=== PATIENT | male | born 1965 | race African-American/Black ===

== ENCOUNTER 2024-03-07 14:38 | Inpatient (IN) ==
--- NOTE | 2024-03-07 15:04 | Emergency Department Note ---
Impression & Plan Pleural effusion ADMIT ED Provider Note HPI: History obtained from patient. 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 Per report patient had an x-ray done at [facility] that showed a large right pleural effusion and patient was therefore sent to the ED to be assessed. On arrival here to the ED the patient is hemodynamically stable, he is noted be saturating at 91% on room air and therefore was placed on nasal cannula oxygen with good improvement to 95%. Patient is otherwise in no acute distress. Patient is conversational on arrival. ROS: - Per HPI Differential Diagnosis: Malignant pleural effusion, pulmonary embolism, pneumonia, viral upper respiratory infection, acute CHF exacerbation, COPD exacerbation,, amongst other potential pathologies. *Outpatient medications and allergy history reviewed. PE: General: Alert HEENT: Normocephalic, trachea midline Eyes: Extraocular eye movement is intact, no scleral erythema Pulmonary: Diminished breath sounds on the right, no evidence of wheezing or crackles bilaterally Cardio: Regular rate and rhythm GI: Abdomen is soft to palpation : No suprapubic tenderness MSK: No evidence of trauma or malformation of the extremities, no edema Skin: No evidence of rash Neuro: Alert, no focal deficits Psychiatric: Cooperative INDEPENDENT INTERPRETATIONS: engine specialist: (As interpreted by myself): - An order was placed for continuous cardiac monitoring - Patient was noted to be in sinus rhythm with a rate of 95 EKG: (As interpreted by myself): Rate: 100 Rhythm: Normal sinus rhythm Intervals: Within normal limits ST changes: No ST elevation Time: 1513 Chest x-ray: (As interpreted by myself): Large right-sided pleural effusion Medical Decision Making: IV was established and lab work obtained, patient was placed on welding setter. Lab work shows a leukopenia at 2.79, hemoglobin is stable at 12.1, platelet count is 463, CMP shows no critical electrolyte abnormalities, troponin is negative, no evidence of acute kidney injury, procalcitonin is low, lipase is low. Chest x-ray shows opacification of the almost entire right lung consistent likely with pleural effusion that is malignant in origin. On my reassessment the patient is resting comfortably on nasal cannula oxygen. I discussed the patient's presentation with the on-call hospitalist, Dr. Hernández, and the patient was placed for admission in stable condition for further management. He will likely require placement of a Pleurx catheter for continuous drainage of his effusion that is now recurrent as he did have a thoracentesis several weeks ago. Patient was placed for admission in stable condition. Consultants/Discussions held with other healthcare providers: -Hospitalist, Dr. Hernández Disposition discussion held by myself with: -Patient and present staff at the bedside Diagnosis: 1. Malignant pleural effusion, acute on chronic 2. Dyspnea, acute 3. Leukopenia, acute 4. Neutropenia, acute 5. History of metastatic carcinoma of the salivary gland Disposition: Admission Ramu Trimble DO Emergency Medicine Past Med/Surg History Problem List (Updated 03/07/24 @ 18:14 by Yemi Wells MD, [facility]) Mediastinal shift Acute respiratory failure with hypoxia Neutropenia Pleural effusion (Acute) Adenoid cystic carcinoma of salivary gland (Chronic 01/08/20) Medical History (Updated 03/07/24 @ 18:14 by Yemi Wells MD, [facility]) Port-A-Cath in place Low back pain Other intervertebral disc degeneration, lumbar region Psoriasis Hypertension, benign Dermatitis Gastroesophageal reflux Generalized idiopathic epilepsy and epileptic syndromes, not intractable, without status epilepticus Adjustment disorder with mixed anxiety and depressed mood Hyperlipidemia Diabetes mellitus type 2, uncomplicated Surgical History (Updated 02/29/24 @ 09:40 by Carmel Tesfaye RN) History of open reduction and internal fixation (ORIF) procedure Left distal femur fracture H/O neck dissection 02/21/20; 07/23/21 Family History (Updated 02/29/24 @ 09:06 by Carmel Tesfaye RN) Mother Cancer Grandmother (Maternal) Cancer Social History Smoking Status: Former smoker Preferred Language: Japanese 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 Beliefs That Will Affect Care: None Current Living Situation: Other Current Living Situation Comment: senior care Feels Safe at Home: Yes Allergies Allergies Allergy/AdvReac Type Severity Reaction Status Date / Time No Known Allergies Allergy Verified 03/07/24 16:39 Home Meds Home Medications Medication Instructions Recorded Confirmed amlodipine 10 mg tablet 10 mg PO DAILY 02/29/24 03/07/24 famotidine 20 mg tablet 20 mg PO DAILY 02/29/24 03/07/24 glipizide 5 mg tablet 5 mg PO DAILY 02/29/24 03/07/24 levetiracetam 500 mg tablet 500 mg PO BID 02/29/24 03/07/24 (Antwan) lisinopril 5 mg tablet 5 mg PO DAILY 02/29/24 03/07/24 metformin 1,000 mg tablet 1,000 mg PO DAILY 02/29/24 03/07/24 mirtazapine 15 mg tablet 15 mg PO HS 02/29/24 03/07/24 prazosin 1 mg capsule 1 mg PO HS 02/29/24 03/07/24 rosuvastatin 10 mg tablet 10 mg PO DAILY 02/29/24 03/07/24 aspirin 81 mg tablet,delayed 81 mg PO DAILY 03/07/24 03/07/24 release insulin regular human 100 unit/mL 1 sliding scale dose subcut 03/07/24 03/07/24 injection solution (Novolin R USEASDIRECTD Regular U-100 Insulin) multivitamin (One Daily 1 tab PO DAILY 03/07/24 03/07/24 Multivitamin tablet) Results & Data (ED) Vital Signs Vital Signs - 24 hr 03/07/24 14:47 03/07/24 15:15 03/07/24 15:15 Temperature 36.8 C Temperature Source Temporal Artery Scan Pulse Rate 101 H Pulse Rate [Apical] 99 H Respiratory Rate 18 29 H Respiratory Effort / Characteristics Non-Labored Spontaneous Respiratory Depth Normal Blood Pressure 140/91 Blood Pressure [Right Arm] 151/110 H Blood Pressure Mean 107 Blood Pressure Mean [Right Arm] 123 Blood Pressure Position Sitting Pulse Oximetry 93 96 91 Oxygen Delivery Method Room Air Nasal Cannula Nasal Cannula Oxygen Flow Rate 2 0 Sepsis Recent Fever Within 48 Hours No Sepsis New/Unexplained Change in Mental Status N/A Sepsis Action Taken by Nursing No Action Required Oxygen Flow Rate - Titration 2 Pulse Oximetry Post Tiitration 96 03/07/24 15:19 03/07/24 15:35 Temperature Temperature Source Pulse Rate 99 H Pulse Rate [Apical] Respiratory Rate Respiratory Effort / Characteristics Respiratory Depth Blood Pressure Blood Pressure [Right Arm] Blood Pressure Mean Blood Pressure Mean [Right Arm] Blood Pressure Position Pulse Oximetry 96 Oxygen Delivery Method Nasal Cannula Oxygen Flow Rate 2 Sepsis Recent Fever Within 48 Hours Sepsis New/Unexplained Change in Mental Status Sepsis Action Taken by Nursing Oxygen Flow Rate - Titration Pulse Oximetry Post Tiitration Laboratory Data 03/07/24 15:05 03/07/24 15:05 Lab Results 03/07/24 Range/Units 15:05 WBC 2.79 L (4.8-10.8) K/ul RBC 4.37 L (4.70-6.10) M/uL Hgb 12.1 L (14.0-18.0) g/dl Hct 37.9 L (42.0-52.0) % MCV 86.7 (80.0-100.0) fL MCH 27.7 (25.0-34.0) pg MCHC 31.9 L (32.0-36.0) g/dL RDW Std Deviation 42.5 (36.4-46.3) fL RDW Coeff of Chyna 13.5 (11.5-14.5) % Plt Count 463 H (130-400) K/uL MPV 9.9 (9.4-12.4) fL Immature Gran % (Auto) 0.0 % Neut % (Auto) 26.6 % Lymph % (Auto) 40.1 % [place] % (Auto) 31.2 % Eos % (Auto) 0.7 % Baso % (Auto) 1.4 % Neut # (Auto) 0.74 L* (1.40-6.50) K/uL Lymph # (Auto) 1.12 L (1.20-3.40) K/uL [place] # (Auto) 0.87 H (0.11-0.59) K/uL Eos # (Auto) 0.02 (0.00-0.50) K/uL Baso # (Auto) 0.04 (0.00-0.20) K/uL Immature Gran # (Auto) 0.00 L (0.01-0.20) K/uL Sodium 140 (136-145) mmol/L Potassium 4.4 (3.5-5.1) mmol/L Chloride 104 (98-107) mmol/L Carbon Dioxide 27 (21-32) mmol/L Anion Gap 9 (3-11) BUN 10 (6-23) mg/dl Creatinine 0.85 (0.6-1.4) mg/dl Est Cr Clr Drug Dosing Not Reportable Est GFR ( Amer) 110.5 ml/min Est GFR (Non-Af Amer) 95.4 ml/min BUN/Creatinine Ratio 11.8 (10-20) Glucose 136 H (70-99(Fasting)) mg/dl Calcium 9.7 (8.6-10.3) mg/dl Total Bilirubin 0.4 (0.2-1.0) mg/dl AST 21 (13-39) U/L ALT 23 (7-52) U/L Alkaline Phosphatase 102 (34-104) U/L Troponin I High Sens 10.0 (0-20) pg/ml Total Protein 8.1 (6.0-8.3) gm/dl Albumin 3.7 (3.4-5.0) gm/dl Globulin 4.4 H (2.5-4.0) gm/dl Albumin/Globulin Ratio 0.8 L (0.9-2) Lipase < 3 L (11-82) U/L Procalcitonin 0.09 (0-0.5) ng/ml Administered Medications Filgrastim (Filgrastim 480 Mcg/1.6 Ml Vial) 480 mcg SC DAILY [facility] Stop: 03/08/24 09:01 Last Admin: 03/07/24 18:15 Dose: 480 mcg Documented By: PAIGE Ceftriaxone Sodium (Rocephin) 2,000 mg in 50 mls @ 100 mls/hr IV Q24H [facility] Stop: 03/09/24 16:59 Last Infusion: 03/07/24 18:55 Dose: Infused Documented By: Admin: 03/07/24 18:17 Dose: 100 mls/hr Documented By: PAIGE Discontinued Medications Lidocaine HCl (Lidocaine 1% Local 20 Ml Vial) Confirm Administered Dose 20 ml .ROUTE .[facility] Stop: 03/07/24 17:20 Last Admin: 03/07/24 18:19 Dose: 10 ml Documented By: PAIGE Imaging Data Radiologist's Impression: Chest X-Ray 03/07/24 14:55 XR chest 1V portable HISTORY: Shortness of breath. COMPARISON: Chest 03/07/2024. FINDINGS: Continued increase in size in the large right pleural effusion with near complete opacification of the right hemithorax and mild left mediastinal shift. This has slightly progressed in the interval. No pneumothorax. A right jugular Port-A-Cath terminates in the SVC. The heart is stable in size. No evidence for pulmonary edema. There are surgical clips again noted within the left neck base. The patient's known right pleural metastatic disease is better appreciated on the prior PET/CT. Old, healed right-sided rib fractures. IMPRESSION: Continued increase in size in the large right pleural effusion with near complete opacification of the right hemithorax and mild left mediastinal shift. ACT 112: Negative or not required by law. Electronically signed by: Shawn Lara M.D. 03/07/2024 4:07 PM Discharge Plan Visit Data Chief Complaint: Respiratory Problems Stated Complaint: FLUID IN LUNGS ED Provider: Ramu Trimble Discharge Problem: Pleural effusion Patient Disposition: Admitted As Inpatient Discharge Instructions Interventions: ED Discharge Assessment Last Done: 03/07/24 19:32
[2024-03-07 15:39] LABS: Hematocrit (blood only) 37.9 % (42.0-52.0); Hemoglobin 12.1 g/dl (14.0-18.0); Mean Corpuscular Hemoglobin 27.7 pg (25.0-34.0); Mean Corpuscular Hgb Conc 31.9 g/dL (32.0-36.0); Mean Corpuscular Volume 86.7 fL (80.0-100.0); Mean Platelet Volume 9.9 fL (9.4-12.4); Platelet Count 463 K/uL (130-400); RDW Coefficient of Variation 13.5 % (11.5-14.5); RDW Standard Deviation 42.5 fL (36.4-46.3); Red Blood Count 4.37 M/uL (4.70-6.10); White Blood Count 2.79 K/ul (4.8-10.8)
[2024-03-07 15:49] LABS: Anion Gap 9 (3-11); BUN Creatinine Ratio 11.8 (10-20); Blood Urea Nitrogen 10 mg/dl (6-23); Calcium 9.7 mg/dl (8.6-10.3); Carbon Dioxide 27 mmol/L (21-32); Chloride 104 mmol/L (98-107); Est GFR (African American) 110.5 ml/min; Est GFR (Non-African American) 95.4 ml/min; Glucose 136 mg/dl (70-99(Fasting)); Potassium 4.4 mmol/L (3.5-5.1); Sodium 140 mmol/L (136-145)
[2024-03-07 16:08] LABS: Lipase < 3 U/L (11-82)
--- NOTE | 2024-03-07 16:08 | XRay Report ---
XR chest 1V portable HISTORY: Shortness of breath. COMPARISON: Chest 03/07/2024. FINDINGS: Continued increase in size in the large right pleural effusion with near complete opacifica tion of the right hemithorax and mild left mediastinal shift. This has slightly progressed in the int erval. No pneumothorax. A right jugular Port-A-Cath terminates in the SVC. The heart is stable in siz e. No evidence for pulmonary edema. There are surgical clips again noted within the left neck base. T he patient's known right pleural metastatic disease is better appreciated on the prior PET/CT. Old, h ealed right-sided rib fractures. IMPRESSION: Continued increase in size in the large right pleural effusion with near complete opacification of th e right hemithorax and mild left mediastinal shift. ACT 112: Negative or not required by law. Electronically signed by: Shawn Lara M.D. 03/07/2024 4:07 PM
[2024-03-07 16:09] LABS: Alanine Aminotransferase 23 U/L (7-52); Albumin Globulin Ratio 0.8 (0.9-2); Albumin Level 3.7 gm/dl (3.4-5.0); Alkaline Phosphatase 102 U/L (34-104); Aspartate Aminotransferase 21 U/L (13-39); Basophils # (auto) 0.04 K/uL (0.00-0.20); Basophils % (auto) 1.4 %; Bilirubin,Total 0.4 mg/dl (0.2-1.0); Eosinophils # (auto) 0.02 K/uL (0.00-0.50); Eosinophils % (auto) 0.7 %; Globulin 4.4 gm/dl (2.5-4.0); Lymphocytes # (auto) 1.12 K/uL (1.20-3.40); Lymphocytes % (auto) 40.1 %; Monocytes # (auto) 0.87 K/uL (0.11-0.59); Monocytes % (auto) 31.2 %; Neutrophils # (auto) 0.74 K/uL (1.40-6.50); Neutrophils % (auto) 26.6 %; Total Protein 8.1 gm/dl (6.0-8.3)
--- NOTE | 2024-03-07 16:12 | History & Physical Report ---
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 Noted to have rapid progression. Was seen by thoracic surgery and is not a surgical candidate for resection due to his rapid progression. Had been relatively asymptomatic at the time although had had rapid growth progression through the right thorax over the last 4 months. Preplacement was pending at that time. Follow-up to [facility] was to be based on genetic testing, cisplatin/for no real been was anticipated. S/p left gland resection 02/2020 Left neck dissection/revision 07/202109/07/2021 - 10/26/2021djuvant radiation therapy at [facility] 02/15/2024: First cycle of cisplatin/Vinrelbine - Takes baby aspirin daily, last dose yesterday - Anticipates continuing chemo with Dr. Watts over the next several weeks, was referred from [facility] day of admit due to dyspnea (2) Pleural effusion: Plan: Right pleural effusion Chest x-ray with large pleural effusion of the right lung Last thoracentesis 02/23/2024 containing atypical cells consistent with metastatic adenoid cystic carcinoma Hypoxic, tachypneic. Pulm consulted for thoracentesis/Pleurx evaluation - Discussed w/ CCP. Agree w/ pleurx eval w pulm, and empiric rocephin x1 given chills/xr findings. Added - Did not get neulasta. Recommend 480mcg filgrastim x1 today and 2nd dose tomorrow. (3) Hypertension, benign: Plan: Hypertension Continue amlodipine, lisinopril (4) Gastroesophageal reflux: Plan: Continue Pepcid (5) Generalized idiopathic epilepsy and epileptic syndromes, not intractable, without status epilepticus: Plan: History of seizures Continue Keppra - Last seizure 1999, unknown cause. None since being on keppra. (6) Hyperlipidemia: Plan: Hyperlipidemia Continue statin (7) Diabetes mellitus type 2, uncomplicated: Plan: DM2 Hold home antiglycemic's -basal bolus while inpt Goal BSG [id number] DM 2 diet (8) Neutropenia: Plan: Patient is neutropenic following chemo, and has an absolute neutrophil count less than 1 He does endorse that he has had chills and night sweats in the last few days along with his progressive dyspnea Neutropenic precautions - Procalcitonin added. Given chills, dyspnea, and opacification of the right hemithorax will cover empirically with 1-2 days of Rocephin. Discussed with hematology oncology, 2 days of Neupogen ordered (40 mcg /, 40 mcg /). Plan Nightmares Continue prazosin DVT prophylaxis: Pharmacal prophylaxis and aspirin held pending pulmonary Pleurx evaluation. 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 Patient has also been undergoing palliative radiation therapy for malignant pleural effusion with right chest wall pain. Collateral reviewed from [facility] Past medical history: Diabetes, eczema, adenoid cystic carcinoma, hypertension, stroke, seizure. Medication as of 09/2023: Amlodipine 10 mg daily, aspirin 81 mg daily, glipizide 5 mg daily, Pepcid, Voltaren, betamethasone topical, insulin NPH, Keppra 1 g twice daily, lisinopril 5 mg daily, metformin 1 g twice daily, rosuvastatin 10 mg daily, multivitamin Last chemo 2 weeks ago[address] Following with Dr. Watts Per pt: Breathing has steadily worsened over the last 2 weeks. Hard to get a deep breath. Cannot walk to med line at the half-way due to his dyspnea. No cough. R front chest and R back +gradual progression of sharp pain. Last had a thoracentesis last week, did feel better but only for a day or two. Drained 2L. No fevers or swats. +Feels cold/chills. No myalgias. Denies cough. He is not sure about the details regarding his future chemotherapy, but notes that he is trying to pursue additional treatment for his cancer No nausea/vomiting. Some loose bowels. Medical History: Reviewed Medications: Reviewed Surgical History: Reviewed Family history: Reviewed Allergies: Reviewed. NKDA. Social History: Hx tobacco abuse, 0.5-1ppd x30 years. No recent ETOH use. Code Status: Full Code Allergies Allergy/AdvReac Type Severity Reaction Status Date / Time No Known Allergies Allergy Verified 03/07/24 16:39 Home Medications Medication Instructions Recorded Confirmed Type amlodipine 10 mg tablet 10 mg PO DAILY 02/29/24 02/29/24 History aspirin 81 mg tablet 81 mg PO DAILY 02/29/24 02/29/24 History famotidine 20 mg tablet 20 mg PO DAILY 02/29/24 02/29/24 History glipizide 5 mg tablet 5 mg PO DAILY 02/29/24 02/29/24 History levetiracetam 500 mg tablet 500 mg PO .COMPLEX 02/29/24 02/29/24 History (Keppra) lisinopril 5 mg tablet 5 mg PO DAILY 02/29/24 02/29/24 History metformin 1,000 mg tablet 1,000 mg PO DAILY 02/29/24 02/29/24 History mirtazapine 15 mg tablet 15 mg PO DAILY 02/29/24 02/29/24 History prazosin 1 mg capsule 1 mg PO QPM 02/29/24 02/29/24 History rosuvastatin 10 mg tablet 10 mg PO DAILY 02/29/24 02/29/24 History aspirin 81 mg tablet,delayed 81 mg PO DAILY 03/07/24 03/07/24 History release insulin regular human 100 unit/mL 1 sliding scale dose subcut 03/07/24 03/07/24 History injection solution (Novolin R USEASDIRECTD Regular U-100 Insulin) multivitamin (One Daily 1 tab PO DAILY 03/07/24 03/07/24 History Multivitamin tablet) Past Med/Surg History Problem List (Updated 03/07/24 @ 16:28 by Servando Hernández MD) Neutropenia Pleural effusion (Acute) Adenoid cystic carcinoma of salivary gland (Chronic 01/08/20) Medical History (Updated 03/07/24 @ 16:28 by Servando Hernández MD) Port-A-Cath in place Low back pain Other intervertebral disc degeneration, lumbar region Psoriasis Hypertension, benign Dermatitis Gastroesophageal reflux Generalized idiopathic epilepsy and epileptic syndromes, not intractable, without status epilepticus Adjustment disorder with mixed anxiety and depressed mood Hyperlipidemia Diabetes mellitus type 2, uncomplicated Surgical History (Updated 02/29/24 @ 09:40 by Carmel Tesfaye RN) History of open reduction and internal fixation (ORIF) procedure Left distal femur fracture H/O neck dissection 02/21/20; 07/23/21 Family History (Updated 02/29/24 @ 09:06 by Carmel Tesfaye RN) Mother Cancer Grandmother (Maternal) Cancer Social History Smoking Status: Former smoker Preferred Language: Portuguese Warper Fixer Required: No Beliefs That Will Affect Care: None Current Living Situation: Other Current Living Situation Comment: snf Feels Safe at Home: Yes Physical Exam 2 Physical Exam: General: A&Ox3. NAD. Cooperative. HEENT: Atraumatic, normocephalic. Hearing grossly intact Pulm: R lung goodwin diminished. Symmetrical chest rise. No increased work of breathing. No respiratory distress on 2 L nasal cannula. No stridor Cardiac: Regular, tachycardic Radial pulses intact and symmetrical. Abdominal: Nontender, nondistended, soft. BS present. Ext: warm, dry, no edema. Results & Data Results & Data Vital Signs (Past 12 Hours) Vital Signs Temp Pulse Pulse Resp BP BP Pulse Ox 03/07/24 15:35 99 H 03/07/24 15:19 96 03/07/24 15:15 91 03/07/24 15:15 99 H 29 H 151/110 H 96 03/07/24 14:47 36.8 C 101 H 18 140/91 93 O2 Del Method O2 Flow Rate 03/07/24 15:35 03/07/24 15:19 Nasal Cannula 2 03/07/24 15:15 Nasal Cannula 0 03/07/24 15:15 Nasal Cannula 2 03/07/24 14:47 Room Air PG Care Time/CCT Total # of Minutes Spent Total Time Spent with Patient: Total time spent is greater than 50% in coordination of care (as documented) at patient's floor/unit and/or counseling patient: Coding Level of Care Code 60111 INT INP/OBS CARE 375MIN Diagnoses Adenoid cystic carcinoma of salivary gland C08.9 Pleural effusion J90 Hypertension, benign I10 Gastroesophageal reflux K21.9 Generalized idiopathic epilepsy and epileptic syndromes, not intractable, without status epilepticus G40.309 Hyperlipidemia E78.5 Diabetes mellitus type 2, uncomplicated E11.9 Neutropenia D70.9
[2024-03-07] MEDS ORDERED: GLUCAGON FOR INJ 1 MG VIAL SQ PRN (16:35)
[2024-03-07] MEDS ORDERED: GLUCOSE 40% GEL 15 GM TUBE PO PRN (16:35)
[2024-03-07] MEDS ORDERED: CARBOHYDRATES FOR HYPOGLYCEMIA PO PRN (16:35)
[2024-03-07] MEDS ORDERED: DEXTROSE 50% 50 ML SYRINGE IV PRN (16:35)
[2024-03-07] MEDS ORDERED: GLUCOSE 10 TAB/TUBE PO PRN (16:35)
[2024-03-07] MEDS ORDERED: Patient's HEIGHT &/or WEIGHT Needed SCH (17:00)
--- NOTE | 2024-03-07 17:05 | Pulmonary Consultation ---
Date of Consultation March 07, 2024 Assessment & Plan (1) Pleural effusion: (2) Adenoid cystic carcinoma of salivary gland: (3) Neutropenia: (4) Acute respiratory failure with hypoxia: (5) Mediastinal shift: Plan Chest x-ray 03/07/2024 personally reviewed: Large right-sided pleural effusion with mediastinal shift to the left, left costophrenic angle clear, no infiltrate on the left side -- Malignant right-sided pleural effusion Status post thoracentesis 02/23/2024, 1.4 L fluid was removed Fluid was positive for adenocystic carcinoma Given the fluid came back and short duration of time and patient is symptomatic with large mediastinal shift Pleurx catheter will be recommended. 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 He understands is agreeable to the procedure For Pleurx catheter placement today Please note the above document was generated using voice recognition software. It may contain grammatical, syntax or spelling errors.Any formal questions or concerns about the content, text or information contained within the body of this dictation should be directly addressed to the provider for clarification. 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 He was saturating 92-93% on 2 L nasal cannula at rest. He was tachycardic in the 100s. He was in respiratory distress. Denies any chest pain. Did complain of heaviness on the right side of the chest. No nausea vomiting Poor appetite. Denies any fever or chills. Does complain of coughing but not bringing up any phlegm. Denies any headache or blurry vision Social history: Greater than [id number] smoking history, used to smoke cocaine and heroin also in the past. No history of lung cancer in the family Allergies Allergy/AdvReac Type Severity Reaction Status Date / Time No Known Allergies Allergy Verified 03/07/24 16:39 Home Medications Medication Instructions Recorded Confirmed Type amlodipine 10 mg tablet 10 mg PO DAILY 02/29/24 03/07/24 History famotidine 20 mg tablet 20 mg PO DAILY 02/29/24 03/07/24 History glipizide 5 mg tablet 5 mg PO DAILY 02/29/24 03/07/24 History levetiracetam 500 mg tablet 500 mg PO BID 02/29/24 03/07/24 History (Keppra) lisinopril 5 mg tablet 5 mg PO DAILY 02/29/24 03/07/24 History metformin 1,000 mg tablet 1,000 mg PO DAILY 02/29/24 03/07/24 History mirtazapine 15 mg tablet 15 mg PO HS 02/29/24 03/07/24 History prazosin 1 mg capsule 1 mg PO HS 02/29/24 03/07/24 History rosuvastatin 10 mg tablet 10 mg PO DAILY 02/29/24 03/07/24 History aspirin 81 mg tablet,delayed 81 mg PO DAILY 03/07/24 03/07/24 History release insulin regular human 100 unit/mL 1 sliding scale dose subcut 03/07/24 03/07/24 History injection solution (Novolin R USEASDIRECTD Regular U-100 Insulin) multivitamin (One Daily 1 tab PO DAILY 03/07/24 03/07/24 History Multivitamin tablet) Patient History Medical History (Updated 03/07/24 @ 18:14 by Yemi Wells MD, [facility]) Port-A-Cath in place Low back pain Other intervertebral disc degeneration, lumbar region Psoriasis Hypertension, benign Dermatitis Gastroesophageal reflux Generalized idiopathic epilepsy and epileptic syndromes, not intractable, without status epilepticus Adjustment disorder with mixed anxiety and depressed mood Hyperlipidemia Diabetes mellitus type 2, uncomplicated Surgical History (Updated 02/29/24 @ 09:40 by Carmel Tesfaye RN) History of open reduction and internal fixation (ORIF) procedure Left distal femur fracture H/O neck dissection 02/21/20; 07/23/21 Family History (Updated 02/29/24 @ 09:06 by Carmel Tesfaye RN) Mother Cancer Grandmother (Maternal) Cancer Social History Smoking Status: Former smoker Preferred Language: Slovenian Credit Investigator Required: No Beliefs That Will Affect Care: None Current Living Situation: Other Current Living Situation Comment: [facility] Feels Safe at Home: Yes Review of Systems 2 Review of Systems: All systems reviewed & are unremarkable except as noted in HPI & below Physical Exam 2 Physical Exam: Constitutional: In respiratory distress HEENT: EOMI, PERRLA Respiratory system: Decreased air entry on the right side, No wheeze, no rhonchi, mild crackles bilateral lower lobes CVS: S1-S2 positive, no murmurs or gallops Abdomen: Soft, nontender, nondistended, positive bowel sounds x4 Extremities: +2 pulses bilaterally radialis/ dorsalis pedis, no cyanosis, no edema Neuro: Awake alert oriented x3 Psych: Normal mood and affect G/U: No johnston Skin: no rashes, warm and dry Lymphatic: no cervical or axillary lymphadenopathy Results & Data Results & Data Vital Signs (Past 12 Hours) Vital Signs Temp Pulse Pulse Resp BP BP Pulse Ox 03/07/24 15:35 99 H 03/07/24 15:19 96 03/07/24 15:15 91 03/07/24 15:15 99 H 29 H 151/110 H 96 03/07/24 14:47 36.8 C 101 H 18 140/91 93 O2 Del Method O2 Flow Rate 03/07/24 15:35 03/07/24 15:19 Nasal Cannula 2 03/07/24 15:15 Nasal Cannula 0 03/07/24 15:15 Nasal Cannula 2 03/07/24 14:47 Room Air Laboratory Results 03/07/24 15:05 03/07/24 15:05 PG Care Time/CCT Total # of Minutes Spent Total Time Spent with Patient: Total time spent is greater than 50% in coordination of care (as documented) at patient's floor/unit and/or counseling patient: Coding Level of Care Code 54731 INT INP/OBS CARE 3/75MIN Diagnoses Pleural effusion J90 Adenoid cystic carcinoma of salivary gland C08.9 Neutropenia D70.9 Acute respiratory failure with hypoxia J96.01 Mediastinal shift R93.89
--- NOTE | 2024-03-07 18:13 | Procedure Note ---
Procedure Note Date of Service March 07, 2024 Note PREOPERATIVE DIAGNOSIS: Recurrent malignant right pleural effusion. POSTOPERATIVE DIAGNOSIS: Recurrent malignant right pleural effusion. PROCEDURE PERFORMED: Right PleurX catheter placement. ANESTHESIA: Local 1% Lidocaine without Epinephrine COMPLICATIONS: None. INDICATION FOR PROCEDURE: Shortness of breath with malignant pleural effusion and mediastinal shift to the left DESCRIPTION OF PROCEDURE: The patient was placed in a semirecumbent position. I evaluated the right pleura with the ultrasound and located an adequate spot above the diaphragm. On ultrasound large right-sided pleural effusion was appreciated with pleural mets and compressive atelectasis of the right lung. The right chest and upper abdomen were prepped and draped in the usual sterile fashion. Lidocaine 1% was used to infiltrate two areas; one in the right upper quadrant where the tube would exit and the other along the anterior axillary line one intercostal space below. A small counterincision was made in the right upper quadrant area. Through the anterior axillary line area, the pleural space was accessed by Seldinger technique. The counterincision was made around the guidewire and then the PleurX catheter was tunneled from the right upper quadrant small incision to the one overlying the ribs. A sheath introducer was then passed over the wire and then the PleurX catheter was placed through the sheath introducer. There was good return of fluid. 2400 ml of sanguinous fluid was withdrawn slowly as the small counterincision was closed with Monocryl stitch. The catheter was capped off, and sterile dressings were applied. The patient tolerated the procedure well without any complications. Chest Xray to follow. Complications: None Blood Loss: < 3cc Please note the above document was generated using voice recognition software. It may contain grammatical, syntax or spelling errors.Any formal questions or concerns about the content, text or information contained within the body of this dictation should be directly addressed to the provider for clarification. Coding CPT Codes Pulmonary/Thoracic - Pulmonary and Thoracic: 32771 Insert pleural cathereter w/cuff ([id number]) Pulmonary/Thoracic - Pulmonary and Thoracic: 73711 Pleural drainage w/o imaging ([id number]) Pulmonary/Thoracic - Pulmonary and Thoracic: 52929 US, Chest, real time with imaging documentation ([id number]) [facility] [place] Codes (Charges) Pulmonary/Thoracic Procedure 1: Pulmonary and Thoracic: 22881 Insert pleural cathereter w/cuff Procedure 2: Pulmonary and Thoracic: 74201 Pleural drainage w/o imaging Procedure 3: Pulmonary and Thoracic: 11568 US, Chest, real time with imaging documentation
[2024-03-07] MEDS: FILGRASTIM 480 MCG/1.6 ML VIAL SC SCH (18:15)
[2024-03-07] MEDS: cefTRIAXone SODIUM 2,000 MG/50 ML BAG IV SCH (18:17)
[2024-03-07] MEDS: LIDOCAINE 1% LOCAL 20 ML VIAL ONE (18:19)
--- NOTE | 2024-03-07 18:24 | XRay Report ---
XR chest 1V portable HISTORY: 58 years-old Male chest tube follow-up study in a patient with right pleural effusion COMPARISON: Chest radiograph of same day at 3:43 PM TECHNIQUE: AP view the chest FINDINGS: Right IJ Ifkpjo-g-Zdtr catheter. A pleural catheter projects in the right lung base. Resolution of th e midline shift. Decreased size of the right pleural effusion with improved aeration of the right upp er lung. No pneumothorax identified. Persistent large right pleural effusion with right lung volume l oss and right basilar consolidation. The heart is enlarged. The left lung is generally clear. Left jack praclavicular surgical clips. IMPRESSION: 1. Right-sided pleural catheter in place with decreased size of the large right-sided pleural effusio n resulting in improved aeration of the right lung. 2. No pneumothorax identified. 3. Resolution of the midline shift. ACT 112: Negative or not required by law. The above report was generated using voice recognition software. It may contain grammatical, syntax o r spelling errors. Electronically signed by: Marvin Buenrostro M.D. 03/07/2024 6:23 PM
[2024-03-07] MEDS: INSULIN ASPART PER UNIT CHARGE SC SCH (20:40)
[2024-03-07] MEDS: PRAZOSIN HCL 1 MG CAP PO SCH (20:49)
[2024-03-07] MEDS: levETIRAcetam 500 MG TAB PO SCH (20:49)
[2024-03-07] MEDS: LANTUS PER UNIT CHARGE SQ SCH (20:52)
[2024-03-07] MEDS: LIDOCAINE 5% 1 PATCH TD STA (20:52)
--- NOTE | 2024-03-08 07:27 | XRay Report ---
XR chest 1V portable HISTORY: 58 years-old Male f/u acute shortness of breath COMPARISON: 03/07/2024 TECHNIQUE: AP view of the chest FINDINGS: Right IJ Cbevwm-d-[id number] catheter. A pleural catheter projects over the right lung base. There is no mi dline shift. Mildly decreased size of the right pleural effusion with improved aeration of the right lung. No pneumothorax identified. Persistent large right pleural effusion with right lung volume loss and right basilar consolidation. The heart is enlarged. The left lung is generally clear. Left supra clavicular surgical clips. IMPRESSION: 1. Right-sided pleural catheter in place with persistent right pleural effusion. 2. Mild improved aeration of the right long. 3. No pneumothorax identified. ACT 112: Negative or not required by law. The above report was generated using voice recognition software. It may contain grammatical, syntax o r spelling errors. Electronically signed by: Marvin Buenrostro M.D. 03/08/2024 7:26 AM
[2024-03-08 08:11] LABS: BUN Creatinine Ratio 11.8 (10-20); Calcium 8.5 mg/dl (8.6-10.3); Creatinine Clr Calc Pharmacy 118.1 ml/min; Est GFR (African American) 110.5 ml/min; Est GFR (Non-African American) 95.4 ml/min
[2024-03-08 08:15] LABS: Hematocrit (blood only) 33.5 % (42.0-52.0); Hemoglobin 10.7 g/dl (14.0-18.0); Mean Corpuscular Hemoglobin 27.4 pg (25.0-34.0); Mean Corpuscular Hgb Conc 31.9 g/dL (32.0-36.0); Mean Corpuscular Volume 85.9 fL (80.0-100.0); Platelet Count 391 K/uL (130-400); RDW Coefficient of Variation 13.8 % (11.5-14.5); RDW Standard Deviation 42.9 fL (36.4-46.3); White Blood Count 9.01 K/ul (4.8-10.8)
[2024-03-08 08:16] LABS: Basophils # (auto) 0.06 K/uL (0.00-0.20); Basophils % (auto) 0.7 %; Dohle Bodies 1+; Eosinophils # (auto) 0.04 K/uL (0.00-0.50); Eosinophils % (auto) 0.4 %; Immature Granulocytes # (auto) 0.06 K/uL (0.01-0.20); Immature Granulocytes % (auto) 0.7 %; Lymphocytes # (auto) 1.23 K/uL (1.20-3.40); Lymphocytes % (auto) 13.7 %; Monocytes # (auto) 1.83 K/uL (0.11-0.59); Monocytes % (auto) 20.3 %; Neutrophils # (auto) 5.79 K/uL (1.40-6.50); Neutrophils % (auto) 64.2 %; Polychromasia 1+
[2024-03-08] MEDS: ROSUVASTATIN CALCIUM 10 MG TAB PO SCH (08:36)
[2024-03-08] MEDS: FAMOTIDINE 20 MG TAB PO SCH (08:36)
[2024-03-08] MEDS: MIRTAZAPINE TAB 15 MG TAB PO SCH ×2 (08:37→23:24)
[2024-03-08] MEDS: lisinopril 5 MG TAB PO SCH (08:37)
[2024-03-08] MEDS: amLODIPine BESYLATE 5 MG TAB PO SCH (08:37)
[2024-03-08] MEDS: ACETAMINOPHEN 325 MG TAB PO PRN (08:48)
--- NOTE | 2024-03-08 12:51 | Pulmonology Progress Note ---
Date of Service March 08, 2024 Assessment & Plan (1) Pleural effusion: (2) Adenoid cystic carcinoma of salivary gland: (3) Neutropenia: (4) Acute respiratory failure with hypoxia: (5) Mediastinal shift: Plan Chest x-ray 03/07/2024 personally reviewed: Large right-sided pleural effusion with mediastinal shift to the left, left costophrenic angle clear, no infiltrate on the left side -- Malignant right-sided pleural effusion Status post thoracentesis 02/23/2024, 1.4 L fluid was removed Fluid was positive for adenocystic carcinoma S/p Pleurx catheter placement 03/07/2024. 2.4 L of sanguinous fluid was removed. 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 Will remove fluid from the right side again today. Would recommend drainage to be done Laoflk-Vytpzkibi-Pnjmwx. Follow-up in the pulmonary clinic office in a week's time to remove the suture Case was discussed with primary team Please note the above document was generated using voice recognition software. It may contain grammatical, syntax or spelling errors.Any formal questions or concerns about the content, text or information contained within the body of this dictation should be directly addressed to the provider for clarification. Admission and Anticipated Discharge Date Admission Date: March 07, 2024 Subjective Patient seen and examined at bedside. No acute distress, no events he was on He says that his breathing has improved compared to when I saw him yesterday Complains of mild tenderness at the site of the Pleurx catheter I did remove the dressing, there was no hematoma. The incision and the tube site looks clear. Fair appetite. Denies any nausea or vomiting Has been afebrile Review of Systems 2 Review of Systems: All systems reviewed & are unremarkable except as noted in Subjective Physical Exam 2 Physical Exam: Constitutional: No acute distress HEENT: EOMI, PERRLA Respiratory system: Decreased air entry on the right side, No wheeze, no rhonchi, mild crackles bilateral lower lobes CVS: S1-S2 positive, no murmurs or gallops Abdomen: Soft, nontender, nondistended, positive bowel sounds x4 Extremities: +2 pulses bilaterally radialis/ dorsalis pedis, no cyanosis, no edema Neuro: Awake alert oriented x3 Psych: Normal mood and affect G/U: No johnston Skin: no rashes, warm and dry Lymphatic: no cervical or axillary lymphadenopathy Results & Data Results & Data Vital Signs (Past 12 Hours) Vital Signs Temp Pulse Pulse Resp BP BP Pulse Ox 03/08/24 11:16 36.9 C 91 H 18 118/76 94 03/08/24 07:12 36.7 C 92 H 19 120/81 91 03/08/24 02:51 36.8 C 92 H 18 101/68 95 O2 Del Method O2 Flow Rate 03/08/24 11:16 Room Air 03/08/24 07:12 Nasal Cannula 2 03/08/24 02:51 Nasal Cannula 2 Laboratory Results 03/08/24 06:59 03/08/24 06:59 PG Care Time/CCT Total # of Minutes Spent Total Time Spent with Patient: Total time spent is greater than 50% in coordination of care (as documented) at patient's floor/unit and/or counseling patient: Coding Level of Care Code 59086 SUB INP/OBS CARE 2/35MIN Diagnoses Pleural effusion J90 Adenoid cystic carcinoma of salivary gland C08.9 Neutropenia D70.9 Acute respiratory failure with hypoxia J96.01 Mediastinal shift R93.89
--- NOTE | 2024-03-08 12:52 | Procedure Note ---
Procedure Note Date of Service March 08, 2024 Note Procedure: Therapeutic drainage of the right-sided pleural effusion Bobtailer: Dr. Yemi Wells Indication: Malignant pleural effusion Consent: Verbal consent was obtained prior to the procedure Anesthesia: None Procedure: Under aseptic precautions and sterile measures. Dressing of the Pleurx catheter was removed The Pleurx catheter was connected to drainage. 1.2 L of sanguinous fluid was removed. Patient tolerated the procedure well. Denied any chest pain or coughing during the procedure. The catheter was capped and dressed with Tegaderm. Patient tolerated the procedure well Complications: None Blood loss: None Coding CPT Codes Pulmonary/Thoracic - Pulmonary and Thoracic: 31265 Pleural drainage w/o imaging ([id number]) [facility] [place] Procedure Codes (Charges) Pulmonary/Thoracic Procedure 1: Pulmonary and Thoracic: 13559 Pleural drainage w/o imaging
--- NOTE | 2024-03-08 16:54 | Hospitalist Progress Note ---
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 Watts over the next several weeks, was referred from [facility] day of admit due to dyspnea Radiation planning completed to day #Pleural effusion: Right pleural effusion Chest x-ray with large pleural effusion of the right lung Last thoracentesis 02/23/2024 containing atypical cells consistent with metastatic adenoid cystic carcinoma PleurX placed by pulm 03/07/24, plan for dc with M/W/F &PRN drainage Will need chronic O2 to maintain sats >92% s/p one dose CTX s/p 2 doses filgrastim #Hypertension, benign: amlodipine, lisinopril #Gastroesophageal reflux: Pepcid #Generalized idiopathic epilepsy and epileptic syndromes, not intractable, without status epilepticus: Keppra Last seizure 1999, unknown cause. None since being on keppra. #Hyperlipidemia: Hyperlipidemia Continue statin #Diabetes mellitus type 2, uncomplicated: Hold home antiglycemic's basal bolus while inpt Goal BSG [id number] DM 2 diet #Neutropenia: Patient is neutropenic following chemo, and has an absolute neutrophil count less than 1 He does endorse that he has had chills and night sweats in the last few days along with his progressive dyspnea Neutropenic precautions Procalcitonin added. Will cover empirically 1x dose Rocephin. Discussed with hematology oncology, 2 days of Neupogen ordered (40 mcg 03/07, 40 mcg 03/08). Admission and Anticipated Discharge Date Admission Date: March 07, 2024 Supervising Physician Co-Signing Physician Notes I personally examined the patient and verified all rosario points of history and exam, discussed case, and agree with decision making with Dr Murguia breathing is better. Still has a cough. Notes that the guards do not "give a fuck about me" vitals noted. No physical distress. Breathing unlabored no accessory muscle use good effort. Skin without rashes pallor or icterus. Malignant effusion with hypoxia and dyspneafortunately now improved with Pleurxwill need to be drained 3 times a week additionally as needed. Likely to need supplemental oxygen. Ongoing management of the cancer with radiation and chemo. Not safe to leave the hospital until it is clear that his respiratory ne eds can be met with Pleurx management and supplemental oxygen if needed at the [facility]. DVT proph - heparin SQ Subjective Patient seen and evaluated at bedside this morning. No acute events overnight. PleurX in place. Review of Systems Review of Systems: reviewed, per HPI Physical Exam Physical Exam: Constitutional: ill-appearing, no acute distress HEENT: NCAT, no conjunctival injection CV:extremities well-perfused, no LE edema Resp: no increased work of breathing MSK: no gross deformities appreciated Skin: warm, dry, no rash appreciated; PleurX in place R chest Neuro: alert, oriented, no focal neurologic deficit appreciated Results & Data Results & Data Vital Signs (Past 12 Hours) Vital Signs Temp Pulse Pulse Pulse Resp BP BP 03/08/24 15:47 36.9 C 86 18 116/81 03/08/24 14:00 94 H 03/08/24 11:16 36.9 C 91 H 18 118/76 03/08/24 07:12 36.7 C 92 H 19 120/81 03/08/24 06:00 95 H Pulse Ox O2 Del Method O2 Flow Rate 03/08/24 15:47 92 Room Air 03/08/24 14:00 03/08/24 11:16 94 Room Air 03/08/24 07:12 91 Nasal Cannula 2 03/08/24 06:00 Resident Activity Tracking Resident Involvement: Resident Care Provided Care Provided: Adult Hospital Medicine
--- NOTE | 2024-03-08 17:35 | Billing Data ---
Date of Service March 08, 2024 Coding Level of Care Code 12491 SUB INP/OBS CARE
[2024-03-08] MEDS: HEPARIN SOD 5,000 UNIT/0.5 ML VIAL SQ SCH (22:04)
[2024-03-08] MEDS: LIDOCAINE 5% 1 PATCH TD SCH (22:36)
[2024-03-08] MEDS ORDERED: Nursing to Pharmacy Communication SCH (23:15)
[2024-03-09 06:29] LABS: Hematocrit (blood only) 34.3 % (42.0-52.0); Hemoglobin 11.1 g/dl (14.0-18.0); Mean Corpuscular Hgb Conc 32.4 g/dL (32.0-36.0); Mean Corpuscular Volume 86.4 fL (80.0-100.0); Platelet Count 359 K/uL (130-400); RDW Coefficient of Variation 13.7 % (11.5-14.5); RDW Standard Deviation 42.7 fL (36.4-46.3); Red Blood Count 3.97 M/uL (4.70-6.10); White Blood Count 9.16 K/ul (4.8-10.8)
[2024-03-09 06:51] LABS: BUN Creatinine Ratio 12.5 (10-20); Calcium 8.8 mg/dl (8.6-10.3); Creatinine Clr Calc Pharmacy 124.6 ml/min; Est GFR (African American) 113.3 ml/min; Est GFR (Non-African American) 97.8 ml/min
[2024-03-09 06:54] LABS: Basophils # (auto) 0.06 K/uL (0.00-0.20); Basophils % (auto) 0.7 %; Dohle Bodies 1+; Echinocytes 2+; Eosinophils # (auto) 0.06 K/uL (0.00-0.50); Eosinophils % (auto) 0.7 %; Immature Granulocytes # (auto) 0.15 K/uL (0.01-0.20); Immature Granulocytes % (auto) 1.6 %; Lymphocytes # (auto) 1.32 K/uL (1.20-3.40); Lymphocytes % (auto) 14.4 %; Monocytes # (auto) 1.49 K/uL (0.11-0.59); Monocytes % (auto) 16.3 %; Neutrophils # (auto) 6.08 K/uL (1.40-6.50); Neutrophils % (auto) 66.3 %
[2024-03-09 07:55] VITALS: RESP 18; TEMP 98.2; O2SAT 96
--- NOTE | 2024-03-09 09:35 | Pulmonology Progress Note ---
Date of Service March 09, 2024 Assessment & Plan (1) Pleural effusion: (2) Adenoid cystic carcinoma of salivary gland: (3) Neutropenia: (4) Acute respiratory failure with hypoxia: (5) Mediastinal shift: Plan Chest x-ray 03/07/2024 personally reviewed: Large right-sided pleural effusion with mediastinal shift to the left, left costophrenic angle clear, no infiltrate on the left side -- Malignant right-sided pleural effusion Status post thoracentesis 02/23/2024, 1.4 L fluid was removed Fluid was positive for adenocystic carcinoma S/p Pleurx catheter placement 03/07/2024. 2.4 L of sanguinous fluid was removed. 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 Still has pleural effusion. 1.2 L of fluid again drained today Would recommend drainage to be done Eqanoc-Osutcprkc-Lvxehz. Follow-up in the pulmonary clinic office in a week's time to remove the suture Will benefit from high-protein diet, Ensure at least on a daily basis Was discussed with RN at bedside Please note the above document was generated using voice recognition software. It may contain grammatical, syntax or spelling errors.Any formal questions or concerns about the content, text or information contained within the body of this dictation should be directly addressed to the provider for clarification. Admission and Anticipated Discharge Date Admission Date: March 07, 2024 Subjective Patient seen and examined at bedside. No acute distress, no adverse events overnight. He stated that he is feeling better compared to when he came to the hospital Was saturating 96-97% on 2 L nasal cannula. The tenderness at the tube site is also decreasing Denies any nausea vomiting Fair appetite Review of Systems 2 Review of Systems: All systems reviewed & are unremarkable except as noted in Subjective Physical Exam 2 Physical Exam: Constitutional: No acute distress HEENT: EOMI, PERRLA Respiratory system: Decreased air entry on the right side, No wheeze, no rhonchi, mild crackles bilateral lower lobes CVS: S1-S2 positive, no murmurs or gallops Abdomen: Soft, nontender, nondistended, positive bowel sounds x4 Extremities: +2 pulses bilaterally radialis/ dorsalis pedis, no cyanosis, no edema Neuro: Awake alert oriented x3 Psych: Normal mood and affect G/U: No johnston Skin: no rashes, warm and dry Lymphatic: no cervical or axillary lymphadenopathy Results & Data Results & Data Vital Signs (Past 12 Hours) Vital Signs Temp Pulse Pulse Resp BP Pulse Ox O2 Del Method 03/09/24 07:54 36.8 C 90 18 127/68 96 Nasal Cannula 03/09/24 03:18 36.7 C 89 17 130/78 97 Nasal Cannula 03/08/24 23:39 97 H 03/08/24 23:03 36.8 C 104 H 18 119/80 94 Nasal Cannula O2 Flow Rate 03/09/24 07:54 2 03/09/24 03:18 2 03/08/24 23:39 03/08/24 23:03 2 Laboratory Results 03/09/24 05:43 03/09/24 05:43 PG Care Time/CCT Total # of Minutes Spent Total Time Spent with Patient: Total time spent is greater than 50% in coordination of care (as documented) at patient's floor/unit and/or counseling patient: Coding Level of Care Code 21582 SUB INP/OBS CARE 2/35MIN Diagnoses Pleural effusion J90 Adenoid cystic carcinoma of salivary gland C08.9 Neutropenia D70.9 Acute respiratory failure with hypoxia J96.01 Mediastinal shift R93.89
--- NOTE | 2024-03-09 11:36 | Procedure Note ---
Procedure Note Date of Service March 09, 2024 Note Procedure: Therapeutic drainage of the right-sided pleural effusion [employer] Calenderer: Dr. Yemi Wells Indication: Malignant pleural effusion Consent: Verbal consent was obtained prior to the procedure Anesthesia: None Procedure: Under aseptic precautions and sterile measures. Dressing of the Pleurx catheter was removed The Pleurx catheter was connected to drainage. 1.25 L of sero-sanguinous fluid was removed. Patient tolerated the procedure well. Denied any chest pain or coughing during the procedure. The catheter was capped and dressed with Tegaderm. Patient tolerated the procedure well Complications: None Blood loss: None Coding CPT Codes Pulmonary/Thoracic - Pulmonary and Thoracic: 89097 Pleural drainage w/o imaging ([id number]) [facility] [place] Codes (Charges) Pulmonary/Thoracic Procedure 1: Pulmonary and Thoracic: 96946 Pleural drainage w/o imaging
--- NOTE | 2024-03-09 13:53 | Discharge Summary ---
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 Patient has also been undergoing palliative radiation therapy for malignant pleural effusion with right chest wall pain. Collateral reviewed from [facility] Past medical history: Diabetes, eczema, adenoid cystic carcinoma, hypertension, stroke, seizure. Medication as of 09/2023: Amlodipine 10 mg daily, aspirin 81 mg daily, glipizide 5 mg daily, Pepcid, Voltaren, betamethasone topical, insulin NPH, Keppra 1 g twice daily, lisinopril 5 mg daily, metformin 1 g twice daily, rosuvastatin 10 mg daily, multivitamin Last chemo 2 weeks ago[address] Following with Dr. Watts Per pt: Breathing has steadily worsened over the last 2 weeks. Hard to get a deep breath. Cannot walk to med line at the senior care due to his dyspnea. No cough. R front chest and R back +gradual progression of sharp pain. Last had a thoracentesis last week, did feel better but only for a day or two. Drained 2L. No fevers or swats. +Feels cold/chills. No myalgias. Denies cough. He is not sure about the details regarding his future chemotherapy, but notes that he is trying to pursue additional treatment for his cancer No nausea/vomiting. Some loose bowels. Medical History: Reviewed Medications: Reviewed Surgical History: Reviewed Family history: Reviewed Allergies: Reviewed. NKDA. Social History: Hx tobacco abuse, 0.5-1ppd x30 years. No recent ETOH use. Code Status: Full Code Admission Exam Per Admitting Provider General: A&Ox3. NAD. Cooperative. HEENT: Atraumatic, normocephalic. Hearing grossly intact Pulm: R lung goodwin diminished. Symmetrical chest rise. No increased work of breathing. No respiratory distress on 2 L nasal cannula. No stridor Cardiac: Regular, tachycardic Radial pulses intact and symmetrical. Abdominal: Nontender, nondistended, soft. BS present. Ext: warm, dry, no edema. Principal Diagnosis Pleural effusion Discharge Exam Constitutional: ill-appearing, no acute distress HEENT: NCAT, no conjunctival injection CV:extremities well-perfused, no LE edema Resp: no increased work of breathing MSK: no gross deformities appreciated Skin: warm, dry, no rash appreciated; PleurX in place R chest Neuro: alert, oriented, no focal neurologic deficit appreciated Discharge Data Allergies Allergy/AdvReac Type Severity Reaction Status Date / Time No Known Allergies Allergy Verified 03/07/24 16:39 Consultations 03/07/24 15:58 ED Decision to Admit Stat 03/07/24 16:37 Consult Pulmonology Routine Ordered Studies 03/07/24 17:05 US point of care ultrasound Urgent 03/08/24 14:01 CT guide rad therapy chest Routine Hospital Course (1) Adenoid cystic carcinoma of salivary gland: (2) Pleural effusion: (3) Hypertension, benign: (4) Gastroesophageal reflux: (5) Generalized idiopathic epilepsy and epileptic syndromes, not intractable, without status epilepticus: (6) Hyperlipidemia: (7) Diabetes mellitus type 2, uncomplicated: (8) Neutropenia: Plan #Adenoid cystic carcinoma of salivary gland: 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 Watts over the next several weeks, was referred from [facility] day of admit due to dyspnea Radiation planning completed to day #Pleural effusion: Right pleural effusion Chest x-ray with large pleural effusion of the right lung Last thoracentesis 02/23/2024 containing atypical cells consistent with metastatic adenoid cystic carcinoma PleurX placed by pulm 03/07/24, plan for dc with M/W/F &PRN drainage at discharge Will need chronic O2 to maintain sats >92% s/p one dose CTX s/p 2 doses filgrastim #Hypertension, benign: amlodipine, lisinopril #Gastroesophageal reflux: Pepcid #Generalized idiopathic epilepsy and epileptic syndromes, not intractable, without status epilepticus: Keppra Last seizure 1999, unknown cause. None since being on keppra. #Hyperlipidemia: Hyperlipidemia Continue statin #Diabetes mellitus type 2, uncomplicated: Hold home antiglycemic's basal bolus while inpt Goal BSG 831997 DM 2 diet #Neutropenia: Patient is neutropenic following chemo, and has an absolute neutrophil count less than 1 He does endorse that he has had chills and night sweats in the last few days along with his progressive dyspnea Neutropenic precautions 1x dose Rocephin. Discussed with hematology oncology, 2 days of Neupogen ordered (40 mcg 03/07, 40 mcg 03/08). Total Time Total Time Spent Total Time Spent (In Minutes): <30 Discharge Plan Discharge Items [facility] Reason For Visit: R PLEURAL EFFUSION Discharge Diagnosis: Adenocystic carcinoma of the salivary gland with lung mets, recurrent pleural effusion Activity: Resume your previous activity Non-emergency contact: Primary Care Provider and [employer] Call non-emergency contact if: you have any medication questions, your symptoms worsen and your pain is not controlled Follow-up/Referrals: Yemi Wells MD, [facility] [Physician] - Donald SILVA [Primary Care Provider] - Marycarmen Watts MD [Physician] - Diet: Carb Consistent or DM2 and Heart Healthy Addtl Attending Provider Instructions: You were admitted to the hospital for pleural effusion. You were treated with a catheter that can be used to drain the fluid around your lungs as it reaccumulates. You will have to have the fluid drained Tuesday, Tuesday, and Tuesday. [facility]. You may also need the fluid drained in between these scheduled drains. It is important that you communicate your degree of shortness of breath. You will need to follow up with the lung doctors to evaluate the catheter. Their office will reach out to the [facility] to schedule this appointment. You may also need supplemental oxygen when you are discharged. The goal is >91% oxygen saturation and oxygen saturation can be titrated to reach this goal. You also had your planning scans for radiation. You should continue to follow with your oncologist and radiation oncologist. A discharge summary will be sent to your primary care physician to ensure continuity of care. Please bring this discharge summary with you to your next office appointment so that your provider can review it at that time. Follow-up appointments: Make a follow-up appointment with your PCP within the next week. It is very important that you follow up with them shortly after discharge from the hospital. Keep all your follow-up appointments as already scheduled. If you cannot make an appointment, notify your provider. Take your medications as instructed; do not skip a dose of your medicines. Make sure all of your doctors know every medicine you are taking (including yrxm-ggk-hrzxext medicines, vitamins, and supplements). Call your primary care provider before taking any new medicines (including bebi-kmi-weyknll medicines, vitamins, and supplements), because some of these may interact with your current medications, or may make your symptoms worse. Tell your primary care provider if you cannot afford your medications. CONTACT YOUR PRIMARY CARE PROVIDER if you experience any of the following: Increased shortness of breath Increased pain associated with the catheter in your chest Difficulty following your treatment plan, or difficulty taking medications CALL 911 OR GO TO THE EMERGENCY DEPARTMENT if you experience any of the following: Sudden, severe abdominal pain or nausea/vomiting Severe chest pain, or chest pain that radiates (moves) to your jaw or arm Sudden, severe shortness of breath or difficulty breathing Thank you for allowing us to participate in your care. Pending Studies at Discharge: No Stand-Alone Forms: My [facility] Skilled Items Patient informed of condition?: Yes Discharge Level of Care: Other Communicable Disease: No Discharge Prognosis: Stable Lines: None Urinary Catheter: No Medications and DC Order Prescriptions: Continued amlodipine 10 mg tablet 10 mg PO DAILY lisinopril 5 mg tablet 5 mg PO DAILY glipizide 5 mg tablet 5 mg PO DAILY famotidine 20 mg tablet 20 mg PO DAILY metformin 1,000 mg tablet 1,000 mg PO DAILY prazosin 1 mg capsule 1 mg PO HS mirtazapine 15 mg tablet 15 mg PO HS levetiracetam [Keppra] 500 mg tablet 500 mg PO BID rosuvastatin 10 mg tablet 10 mg PO DAILY multivitamin [One Daily Multivitamin] Tablet 1 tab PO DAILY aspirin 81 mg Tablet,Delayed Release (Dr/Ec) 81 mg PO DAILY Novolin R Regular U100 Insulin 100 unit/mL Solution 1 sliding scale dose SUBCUT USEASDIRECTD Rx Instructions: BSG 201-250=2 UNITS, 251-300=4 UNITS, 301-350=6 UNITS, 351-400=8 UNITS, 401- 450=10 UNITS, 451-500=12 UNITS, >500=CALL MD Discharge Orders: Discharge Order (Routine); Ordered 03/09/24 Ordered By: Denis Murguia Admission Data Admit Date/Time: 03/07/24 16:40 Attending Provider: Fred Chang Admit Provider: Servando Hernández Primary Care Provider: Donald SILVA Other Providers: Servando Hernández; Yemi Wells Other Interventions: Discharge Summary Assessment (RN) Last Done: 03/09/24 14:17 Supervising Physician Co-Signing Physician Notes I personally examined the patient and verified all rosario points of history and exam, discussed case, and agree with decision making with Dr Murguia Breathing still improved after tube, he can feel the tube, but it is not that uncomfortable. Discussed next steps and plans. Answered all questions to the best my ability. vitals noted. No physical distress. Breathing unlabored no accessory muscle use good effort. Skin without rashes pallor or icterus. Malignant effusion with hypoxia and dyspneafortunately now improved with Pleurxwill need to be drained 3 times a week, additionally as needed. Likely to need supplemental oxygen. Ongoing management of the cancer with radiation and chemo. [facility], patient safe/stable for discharge. DVT proph - heparin SQ utilized during his stay Resident Activity Tracking Resident Involvement: Resident Care Provided Care Provided: Adult Hospital Medicine
--- NOTE | 2024-03-09 14:13 | XRay Report ---
SINGLE VIEW CHEST CLINICAL HISTORY: Dyspnea. Pleural effusion. FINDINGS: An AP, portable, upright chest radiograph is compared to study dated 03/08/2024. Correlation is made with PET CT dated 02/17/2024. The examination is degraded by portable technique and apical jm dotic positioning. A right internal jugular central venous infusion port is unchanged in position. Th e cardiomediastinal silhouette is unremarkable. A pleural catheter at the right lung base is unchange d in position. There is a moderate and at least partially loculated right pleural effusion with conso lidation of the right lower lung. The left lung appears clear. Metastatic disease was much better ass essed on the recent PET examination. No pneumothorax is seen. The skeletal structures are osteopenic. There are chronic/healed bilateral rib fractures. IMPRESSION: 1. A pleural catheter is again seen at the right lung base. A right pleural effusion with right basil ar consolidation is unchanged. 2. The left lung appears clear. 3. Findings of metastatic disease were much better assessed on the recent PET examination. ACT 112: Negative or not required by law. Electronically signed by: Oscar Hernandez M.D. 03/09/2024 2:12 PM
[2024-03-09 14:20] VITALS: BP 120/81
[2024-03-09 16:31] VITALS: PULSE 95
--- NOTE | 2024-03-09 18:13 | Billing Data ---
Date of Service March 09, 2024 Coding Level of Care Code 34201 IN/OBS DISCH 30 MIN/LESS
--- NOTE | 2024-03-10 05:23 | Electrocardiogram Report ---
Test Reason : Blood Pressure : / mmHG Vent. Rate : 100 BPM Atrial Rate : 100 BPM P-R Int : 148 ms QRS Dur : 094 ms QT Int : 356 ms P-R-T Axes : 048 065 062 degrees QTc Int : 459 ms Normal sinus rhythm Cannot rule out Septal infarct , age undetermined Abnormal ECG No previous ECGs available Confirmed by Umesh Marley ([id number]) on 03/10/2024 5:23:04 AM Referred By: Confirmed By:Umesh Marley
== END 2024-03-09 17:43 | DRG 146 ==
LOC: ED 14:38 → EDINP 16:40 → SUATTDRO 16:40 → 2S 21:09
DX: Z92.3 Personal history of irradiation; K21.9 Gastro-esophageal reflux disease without esophagitis; D70.9 Neutropenia, unspecified; G40.309 Generalized idiopathic epilepsy and epileptic syndromes, not intractable, without status epilepticus; J98.11 Atelectasis; Z79.4 Long term (current) use of insulin; C78.2 Secondary malignant neoplasm of pleura; C78.01 Secondary malignant neoplasm of right lung; E11.9 Type 2 diabetes mellitus without complications; J91.0 Malignant pleural effusion; J96.01 Acute respiratory failure with hypoxia; I10 Essential (primary) hypertension; Z79.84 Long term (current) use of oral hypoglycemic drugs; Z87.891 Personal history of nicotine dependence; Z79.82 Long term (current) use of aspirin; E78.5 Hyperlipidemia, unspecified; C08.0 Malignant neoplasm of submandibular gland